=== PATIENT | female | born 1965 | race Two or more races ===

== ENCOUNTER 2024-09-22 14:07 | Emergency (ER) | payer OTHER ==
[~2024-09-22] VITALS: Ht 157.5 cm; Wt 75.7 kg
[~2024-09-22 14:07] MED LIST: CEFTIN250 MG PO; INTESTINEX680 MG PO; LEVSIN/SL0.125 MG PO; PERCOCET 5/3251 TAB PO; URIN D.S. TABLE1 TAB PO; ZANTAC150 MG PO
[2024-09-22] MEDS ORDERED: METFORMIN HCL500 M3 PO (14:17)
[2024-09-22 14:18] VITALS: BP 160/87; O2SAT 98
[2024-09-22] MEDS ORDERED: KETOROLAC TROMETHAMINE 30 MG VIAL IM ONE (17:00)
[2024-09-22] MEDS ORDERED: KETOROLAC TROMETHAMINE 30 MG VIAL ONE (17:00)
[2024-09-22] MEDS ORDERED: DICLOFENAC SODI50 MG PO (20:40)
== END 2024-09-22 21:03 | disposition home or self-care (01) ==
LOC: ER 14:08
DX: M25.561 Pain in right knee (principal); M85.88 Other specified disorders of bone density and structure, other site; E11.9 Type 2 diabetes mellitus without complications; Z79.84 Long term (current) use of oral hypoglycemic drugs